=== PATIENT | female | born 1950 | race Caucasian/White ===

== ENCOUNTER → 2022-07-29 14:35 | Outpatient (BNVA) | payer MEDICARE, BC, SELFPAY | PROVIDERS: PCP Family Medicine; Visit Provider Internal Medicine | DX: M41.9 Scoliosis, unspecified (principal); M47.816 Spondylosis without myelopathy or radiculopathy, lumbar region | CPT/HCPCS: 99202 ==

== ENCOUNTER 2022-08-28 06:48 | Outpatient (REF) | payer MEDICARE, BC, SELFPAY ==
--- NOTE | ~2022-08-28 | FL_ITS ---
EXAMINATION: XR FLUOROSCOPY WITH IMAGES CLINICAL INFORMATION: Spondylosis COMPARISON: None. TECHNIQUE: Fluoroscopy Supervised By: Dr. Sy Gutierrez. Fluoroscopy Time: 0.2 minutes. Cumulative 4.15 mGy. DAP: 0.43 Gycm2. Images: 2. FINDINGS: There are 2 digital images obtained with needle positioned overlying the bilateral L3, L4, L5 facet joints with its contrast opacifying the soft tissues. There is degenerative disc changes L4-L5 disc level. No aggressive lytic or sclerotic process seen. FL/FL guidance in treatment room IMPRESSION: Fluoroscopy was provided to referring physician for pain management.
== END 2022-08-28 06:49 | disposition home or self-care (01) ==
LOC: CF 06:48
PROVIDERS: Visit Provider Internal Medicine
DX: M47.816 Spondylosis without myelopathy or radiculopathy, lumbar region (principal)
CPT/HCPCS: 64493; 64494

== ENCOUNTER → 2022-08-30 10:51 | Outpatient (BNVA) | payer MEDICARE, BC, SELFPAY | PROVIDERS: PCP Family Medicine; Visit Provider Internal Medicine | DX: M47.816 Spondylosis without myelopathy or radiculopathy, lumbar region (principal); M41.9 Scoliosis, unspecified | CPT/HCPCS: Q3014 ==

== ENCOUNTER 2022-10-23 06:00 | Outpatient (REF) | payer MEDICARE, BC, SELFPAY ==
--- NOTE | ~2022-10-23 | FL_ITS ---
EXAMINATION: XR FLUOROSCOPY WITH IMAGES CLINICAL INFORMATION: M47.816 - Spondylosis without myelopathy or radiculopathy, lumbar region COMPARISON: MR lumbar spine 06/22/2020 ([facility]). TECHNIQUE: Fluoroscopy Supervised By: Dr. Sy Gutierrez. Fluoroscopy Time: 0.2. Cumulative Dose: 4.71 mGy. DAP: 0.461 Gycm2. Images: 2. FINDINGS: There are spinal needles overlying the bilateral outer L3, L4, and L5 neural foramen. There is contrast seen in the respective nerve sheaths. Some early transforaminal epidural extension is suggested. No visible vascular communication. There are multilevel degenerative disc changes as well as a levocurvature mid to lower lumbar spine. FL/FL guidance in treatment room IMPRESSION: Fluoroscopy for pain management procedures.
== END 2022-10-23 06:01 | disposition home or self-care (01) ==
LOC: CF 06:00
PROVIDERS: Visit Provider Internal Medicine
DX: M47.816 Spondylosis without myelopathy or radiculopathy, lumbar region (principal)
CPT/HCPCS: 64493; 64494

== ENCOUNTER 2024-04-19 14:54 | Outpatient (REF) | payer MEDICARE, BC, SELFPAY | END 2024-04-19 14:55 | disposition home or self-care (01) | LOC: HO.XRAY 14:54 | PROVIDERS: PCP Family Medicine; Visit Provider Nurse Practitioner Women's Health | DX: M54.16 Radiculopathy, lumbar region (principal) | CPT/HCPCS: 72110 ==